=== PATIENT | male | born 1935 | race Two or more races ===

== ENCOUNTER → 2016-09-24 | Outpatient (CLI) | payer MEDICARE | END | disposition home or self-care (01) | LOC: CFH 09:18 | PROVIDERS: ATTEND Internal Medicine | DX: R91.8 Other nonspecific abnormal finding of lung field (principal); J84.10 Pulmonary fibrosis, unspecified; J18.9 Pneumonia, unspecified organism; M25.78 Osteophyte, vertebrae; M40.294 Other kyphosis, thoracic region; Z90.49 Acquired absence of other specified parts of digestive tract | CPT/HCPCS: 71250 ==